=== PATIENT | female | born 1995 | race Caucasian/White ===

== ENCOUNTER 2016-10-31 11:57 | Outpatient (CLI) | payer BC ==
[~2016-10-31] VITALS: Ht 162.6 cm; Wt 68.1 kg
[2016-10-31] MEDS ORDERED: PRENAT PO (12:23)
[2016-10-31] MEDS ORDERED: CYAN100080 PO (12:23)
[2016-10-31 12:24] VITALS: BP 99/61; PULSE 90; RESP 18; Ht 162.6 cm; Wt 68.1 kg
--- NOTE | 2016-10-31 14:01 | RADRPT ---
PROCEDURE: OB ultrasound for biophysical profile with NARA. CLINICAL INDICATION: Vaginal bleeding. TECHNIQUE: Multiple sonographic images of the gravid uterus were obtained. The images were review ed on a PACS workstation. COMPARISON: None. FINDINGS: breathing movement = 2/2 tone = 2/2 motion = 2/2 NARA = 2/2 There is a single viable intrauterine gestation with cardiac and a heart rate of 132 bpm. Ther e is a cephalic presentation and an anterior, grade 1 placenta. There is no evidence of abruption o r placenta previa. NARA = 12.6 cm IMPRESSION: 1. Single viable intrauterine gestation. 2. Biophysical profile = 8/8. 3. NARA = 12.6 cm. RPTAT: HLBP .Neil Pereira MD, MD Date Time Electronically viewed and signed by .Neil Pereira MD, MD on 10/31/2016 14:01 .P/
--- NOTE | 2016-10-31 14:21 | TRIAGE ---
OB Triage Datetime Report Generated by CPN: 10/31/2016 14:21 Datetime: 10/31/2016 14:16 Vaginal Exam Dilatation (cms): 0.0 Exam By: [email or web address] Datetime: 10/31/2016 13:12 Labor Evaluation Frequency: 0 Monitor Mode: External Duration (sec)2399: 0 Resting Tone [place]: Relaxed Heart Rate FHR Baseline Rate: 125 Monitor Mode: External US FHR Baseline Changes: No Baseline Change Variability: Moderate 6-25 bpm Accelerations: 15X15 Decelerations: None Category: Category I Datetime: 10/31/2016 13:00 Stage of : OB Triage Maternal Assessment Level of Consciousness: Fully Conscious Labor Evaluation Frequency: NONE Monitor Mode: External Resting Tone [place]: Relaxed Heart Rate FHR Baseline Rate: 135 Monitor Mode: External US Variability: Moderate 6-25 bpm Accelerations: 15X15 Decelerations: None Pain Assessment Pain Scale: 0 Pain Presence: None/Denies Pain Goal: 3 Membrane Status: Intact Vaginal Bleeding: None Datetime: 10/31/2016 12:28 EGA: 30.4 Datetime: 10/31/2016 12:21 Assessment Type: Triage Maternal Assessment Level of Consciousness: Fully Conscious DTR's/Clonus: DTRs 2+; No Clonus Headache: Denies Blurred Vision: No Respiratory Effort: Unlabored; Regular Rhythm; Equal Expansion Breath Sounds, Left: Clear and Equal Breath Sounds, Right: Clear and Equal Nausea/Vomiting: Denies RUQ Epigastric Pain: Denies Lower Extremities Edema: None Degree: None Upper Extremities Edema: None Degree: None Facial Edema: None Fall Risk Assessment History of Falling: (0) No Secondary Diagnosis: (0) No Ambulatory Aid: (0) Bedrest/Nurse Assist IV Therapy: (0) No Gait: (0) Normal/Bedrest/Immobile Mental Status: (0) Oriented to Own Ability Fall Score: 0 Fall Risk Score Definition: No Risk: No action required Datetime: 10/31/2016 12:20 Time of Arrival: 10/31/2016 11:54 Arrived By: Ambulatory Arrived From: Home Chief Complaint: C/O SPOTTING Movement: Decreased Contractions: Denies/Absent Rupture of Membranes: Denies Vaginal Bleeding: None Vaginal Discharge: Denies Recent Sexual Intercouse: Denies Abdominal Trauma: Not Applicable Patient Complaints: None Provider Notified: LUZ MARINA Initial Plan: US BPP, EFM
--- NOTE | 2016-10-31 15:40 | HP ---
Date/Time of Note Date/Time of Note DATE: 10/31/16 TIME: 15:32 OB - History Hx of Present Free Text/Dictation 21 y.0 A1 EDC 01/05/17 at 30w4d with c/o vaginal spotting'. denies any uterine contractions at triage no evidence of vaginal spotting EFM no uterine activities u/s for placental location and any abrutio neg BPP 05/28 NARA 12.6 VE CX long closed no blood on exam glove Past Family/Social History * Past Medical, Surgical, Family and Obstetric Histories reviewed from chart. OB Admission Exam Vital Signs Vital Signs Vital Signs Date Time Temp Pulse Resp B/P Pulse Ox O2 Delivery O2 Flow Rate FiO2 10/31/16 12:24 98.8 90 18 99/61 99 Room Air OB Assessment/Plan Other Assessment: IUP 30W4D with vaginal spotting Other plan: d/s home with routine labor instructions advise to rth if any other episodes immediatly f/u at office for care KAYLAH RAZA MD Oct 31, 2016 15:40
== END 2016-10-31 14:30 | disposition home or self-care (01) ==
LOC: OBT 11:57 → L-D 11:58 → OBT 14:10 → L-D 14:10 → OBT 14:30
PROVIDERS: ATTEND Obstetrics & Gynecology
DX: O26.853 Spotting complicating pregnancy, third trimester (principal); Z3A.30 30 weeks gestation of pregnancy
CPT/HCPCS: 76818; Z7500; G0463

== ENCOUNTER 2017-01-08 08:00 | Inpatient (IN) | payer BC ==
[~2017-01-08] VITALS: Ht 162.6 cm; Wt 78.5 kg
[~2017-01-08 08:00] MED LIST: CYAN100080 PO; PRENAT PO
[2017-01-08 09:51] VITALS: Ht 162.6 cm; Wt 78.5 kg
[2017-01-08 09:52] VITALS: BP 122/70; PULSE 92; RESP 18
[2017-01-08] MEDS ORDERED: METHYLERGONOVINE 0.2 MG INJ IM PRN (10:00)
[2017-01-08] MEDS ORDERED: CARBOPROST 250 MCG INJ IM PRN (10:00)
[2017-01-08] MEDS ORDERED: OXYTOCIN 30 UNITS/LR 500 ML IV PRN (10:00)
[2017-01-08] MEDS ORDERED: MISOPROSTOL 200 MCG TAB PR PRN (10:00)
[2017-01-08] MEDS ORDERED: OXYTOCIN 30 UNITS/LR 500 ML IV SCH ×2 (10:00)
[2017-01-08] MEDS ORDERED: IBUPROFEN 600 MG TAB PO PRN (10:00)
[2017-01-08] MEDS ORDERED: LIDOCAINE 1% (MPF) 30 ML INJ INJ PRN (10:00)
[2017-01-08 10:04] LABS: ADD SCAN DIFF NO
[2017-01-08 10:06] LABS: BASOPHILS % 0.2 % (0.0-2.0); EOSINOPHILS # 0.1 10^3/ul (0.0-0.5); EOSINOPHILS % 0.7 % (0.0-7.0); HEMATOCRIT 34.4 % (37.0-47.0); HEMOGLOBIN 11.7 g/dl (12.0-16.0); LYMPHOCYTES # 2.1 10^3/ul (0.8-2.9); LYMPHOCYTES % 19.1 % (15.0-51.0); MEAN CORPUSCULAR VOLUME 96.9 fl (82.0-101.0); MEAN PLATELET VOLUME 11.4 fl (7.4-10.4); MONOCYTE # 0.8 10^3/ul (0.3-0.9); MONOCYTES % 7.2 % (0.0-11.0); NEUTROPHIL # 7.8 10^3/ul (1.6-7.5); NEUTROPHILS % 72.4 % (39.0-77.0); PLATELET COUNT 231 10^3/UL (140-415); RED BLOOD COUNT 3.55 10^6/ul (4.20-5.40); RED CELL DISTRIBUTION WIDTH 13.2 % (11.5-14.5); WHITE BLOOD COUNT 10.8 10^3/ul (4.8-10.8)
[2017-01-08 10:10] LABS: INR 0.92; PARTIAL THROMBOPLASTIN TIME 24.1 Sec (25.0-35.0); PROTIME 12.4 Sec (12.2-14.2)
[2017-01-08] MEDS: LACTATED RINGER'S 1,000 ML IV SCH ×2 (10:20→16:25)
[2017-01-08] MEDS ORDERED: DINOPROSTONE 10 MG VAG SUPP VAG ONE (11:00)
[2017-01-08 11:22] LABS: BARBITURATES NEGATIVE (NEGATIVE); BENZODIAZEPINES NEGATIVE (NEGATIVE); CANNABINOIDS NEGATIVE (NEGATIVE); COCAINE NEGATIVE (NEGATIVE); OPIATES NEGATIVE (NEGATIVE)
[2017-01-08] MEDS ORDERED: LACTATED RINGER'S 1,000 ML IV PRN (16:00)
[2017-01-09] MEDS ORDERED: DINOPROSTONE 10 MG VAG SUPP VAG ONE (01:10)
[2017-01-09] MEDS: BUTORPHANOL 2 MG INJ IV PRN ×2 (03:52→06:26)
[2017-01-09] MEDS: LACTATED RINGER'S 1,000 ML IV SCH ×2 (06:26→23:14)
[2017-01-09] MEDS ORDERED: FENTAnyl 2MCG/ML-ROPIV 0.2% 100 ML ONE (06:44)
[2017-01-09] MEDS ORDERED: DEXTROSE 5%-LR 1,000 ML IV SCH (10:30)
[2017-01-09] MEDS ORDERED: NALOXONE (0.4 MG/ML) INJ IV PRN (16:00)
[2017-01-09] MEDS ORDERED: KETOROLAC 30 MG INJ IV PRN (16:00)
[2017-01-09] MEDS ORDERED: PROCHLORPERAZINE 10 MG INJ IV PRN (16:00)
[2017-01-09] MEDS ORDERED: DIPHENHYDRAMINE 50 MG INJ IV PRN (16:00)
[2017-01-09] MEDS ORDERED: ONDANSETRON 4 MG INJ IV PRN (16:00)
[2017-01-09] MEDS ORDERED: FENTAnyl 2MCG/ML-ROPIV 0.2% 100 ML BAG EPI SCH (16:00)
[2017-01-09] MEDS ORDERED: morphine 2 MG INJ IV PRN ×2 (16:00)
--- NOTE | 2017-01-09 19:28 | HP ---
Date/Time of Note Date/Time of Note DATE: 01/09/17 TIME: 19:23 OB - History Hx of Present Free Text/Dictation 21 y.o A1(ia)at 39w5d for induction of labor electively VE closed long -2 had une venful course Estimated Due Date: Jan 09, 2017 : 2 Para: 0 Spontaneous : 0 Therapeutic : 1 Care: Good Care Ultrasounds: Normal mid trimester US Obstetrical Complications: None Medical Complications: None Past Family/Social History * Past Medical, Surgical, Family and Obstetric Histories reviewed from chart. Blood Type: A+ Rubella: immune RPR/VDRL: Negative GBS Status: Negative HBsAG: Negative OB Admission Exam Vital Signs Vital Signs Vital Signs Date Time Temp Pulse Resp B/P Pulse Ox O2 Delivery O2 Flow Rate FiO2 01/08/17 09:52 97.5 92 18 122/70 Room Air Physical Exam HEENT: WNL Heart: Rhythm Normal Lungs: Clear, Equal Abdomen: WNL Extremities: Normal Reflexes: Normal Cervical Dilatation: None Effacement: 0% Station: -2 Membranes: Intact Amniotic Fluid: Unevaluable Heart Rate: 140's Accelerations: Accelerations Present Decelerations: No Decelerations Varibility: Minimum Contractions on Admission: None Last 72 hours Lab Results CBC & BMP 01/08/17 09:35 OB Assessment/Plan Reason for admission: induction of labor Other Assessment: IUP 39W6D Plan: Induction Induction Method: per Misoprostol Protocol KAYLAH RAZA MD Jan 09, 2017 19:27
--- NOTE | 2017-01-09 19:30 | LDN ---
Date/Time of Note Date/Time of Note DATE: 01/09/17 TIME: 19:28 Delivery Summary NORMAL VAGINAL DELIVERY Placenta Delivered: Spontaneously Meconium: none Episiotomy: No Perineal laceration: 1 Laceration repair: VAGINAL LACERATION Anesthesia type: Epidural Estimated blood loss: 100 Sponge & Needle done & correct: Yes All needle counts correct: Yes Any foreign bodies felt in the: No Problems: Infant Delivery Information Sex Infant Sex: male Apgars 1 Minute: 9 5 Minute: 9 Suctioning Nose & mouth suctioned at rajni: Yes Delee suction performed: No Umbilical Cord Umbilical cord with: 3 Vessels Cord Blood was obtained: Yes Mother & Baby Disposition Disposition Mom & Baby to Maternity; Good: Yes Mom transferred to: Other () Baby to NICU: No KAYLAH RAZA MD Jan 09, 2017 19:30
[2017-01-09 21:20] VITALS: BP 108/63; PULSE 84; RESP 18
[2017-01-09 22:00] VITALS: BP 100/59; PULSE 82; RESP 18
[2017-01-09] MEDS ORDERED: OXYTOCIN 30 UNITS/LR 500 ML IV PRN (22:00)
[2017-01-09] MEDS ORDERED: ZOLPIDEM 5 MG TAB PO PRN (22:00)
[2017-01-09] MEDS ORDERED: METHYLERGONOVINE 0.2 MG INJ IM PRN (22:00)
[2017-01-09] MEDS ORDERED: CARBOPROST 250 MCG INJ IM PRN (22:00)
[2017-01-09] MEDS ORDERED: LANOLIN 7 GM TUBE TOP PRN (22:00)
[2017-01-09] MEDS ORDERED: MISOPROSTOL 200 MCG TAB PR PRN (22:00)
[2017-01-09] MEDS ORDERED: BENZOCAINE 20% 56 ML SPRAY TOP PRN (22:00)
[2017-01-09] MEDS ORDERED: WITCH HAZEL/GLYCERIN PAD PR PRN (22:00)
[2017-01-09] MEDS ORDERED: OXYCODONE/ASPIRIN (4.88/325) TAB PO PRN ×2 (22:00)
[2017-01-09] MEDS: IBUPROFEN 600 MG TAB PO SCH (23:46)
[2017-01-10] VITALS: BP 102/55; PULSE 84; RESP 18
[2017-01-10 04:10] VITALS: BP 98/63; PULSE 66
[2017-01-10] MEDS: IBUPROFEN 600 MG TAB PO SCH ×3 (06:02→17:13)
[2017-01-10] MEDS: LACTATED RINGER'S 1,000 ML IV SCH (07:30)
[2017-01-10 08:11] LABS: ADD SCAN DIFF NO
[2017-01-10 08:15] VITALS: BP 98/59; PULSE 78; RESP 18
[2017-01-10 08:18] LABS: BASOPHILS % 0.1 % (0.0-2.0); EOSINOPHILS # 0.2 10^3/ul (0.0-0.5); EOSINOPHILS % 1.3 % (0.0-7.0); HEMATOCRIT 30.3 % (37.0-47.0); HEMOGLOBIN 10.1 g/dl (12.0-16.0); LYMPHOCYTES # 1.7 10^3/ul (0.8-2.9); LYMPHOCYTES % 13.6 % (15.0-51.0); MEAN CORPUSCULAR HEMOGLOBIN 32.1 pg (29.0-33.0); MEAN CORPUSCULAR HGB CONC 33.3 g/dl (32.0-37.0); MEAN CORPUSCULAR VOLUME 96.2 fl (82.0-101.0); MEAN PLATELET VOLUME 11.6 fl (7.4-10.4); MONOCYTE # 0.8 10^3/ul (0.3-0.9); MONOCYTES % 6.3 % (0.0-11.0); NEUTROPHILS % 78.2 % (39.0-77.0); PLATELET COUNT 178 10^3/UL (140-415); RED BLOOD COUNT 3.15 10^6/ul (4.20-5.40); RED CELL DISTRIBUTION WIDTH 13.2 % (11.5-14.5); WHITE BLOOD COUNT 12.7 10^3/ul (4.8-10.8)
[2017-01-10] MEDS ORDERED: INFLUENZA VIRUS VACCINE 0.5 ML SYG IM* ONE (15:00)
[2017-01-10 16:30] VITALS: BP 99/58; PULSE 138
--- NOTE | 2017-01-10 17:39 | PN ---
Date/Time of Note Date/Time of Note DATE: 01/10/17 TIME: 17:37 OB Subjective Subjective Subjective c/o after pain OB Objective Objective Objective vss afebrile fundus ffirm lochia min ext neg for tenderness OB Assessment/Plan Other Assessment: stable Other plan: u/a urine culture KAYLAH RAZA MD Jan 10, 2017 17:39
[2017-01-10 20:05] VITALS: BP 107/66; PULSE 75; RESP 19
[2017-01-10] MEDS: SENNA/DOCUSATE NA (8.6MG/50MG) TAB PO SCH (21:47)
[2017-01-11] MEDS: IBUPROFEN 600 MG TAB PO SCH ×4 (00:25→17:42)
[2017-01-11 04:10] VITALS: BP 102/58; PULSE 79; RESP 18
[2017-01-11 08:00] VITALS: BP 89/59; PULSE 85; RESP 17
[2017-01-11] MEDS ORDERED: DIPHTH/TET/ACEL PERTUSS (ADULT) 0.5 ML VIAL IM* ONE (09:00)
[2017-01-11] MEDS: SENNA/DOCUSATE NA (8.6MG/50MG) TAB PO SCH (09:37)
--- NOTE | 2017-01-11 10:05 | PD.PPDC ---
[employer] Discharge Instruction Diagnosis Final Diagnosis: s/p normal vaginal delivery Condition Patient Condition: Stable Diet Diet: Resume Regular Diet Activity/Restrictions Activity: May Shower Restrictions: No Lifting No Sexual Activity Nothing in the Vagina No [place] No Tampons, douche Follow-up Follow-up with Physician: 6, Week/Weeks Return to clinic for [facility] SPECIALIST Instructions: Fever greater than 101 Chills Worsening abdominal pain Excessive Vaginal Bleeding More than 2 pads per hour Unable to tolerate diet OB Instructions: Breast Tenderness Depression Blurried Vision Headache Surgical Instructions: Incisional Drainage Incisional Redness KAYLAH RAZA MD Jan 11, 2017 10:05
--- NOTE | 2017-01-11 10:07 | DS ---
Date/Time of Note Date/Time of Note DATE: 01/11/17 TIME: 10:06 Obstetrical Discharge Record Final Diagnosis Final Diagnosis: Term delivered Vaginal Delivery Obstetrical Delivery: Spontaneous, Laceration, Repaired Complications Induction: Yes Condition on Discharge Physical Assessment Last Vitals: vss afebrile Voiding: Yes Bowel Movement: Yes Breast: Soft, non-tender Fundus: Firm Calf Tenderness: No Patient Condition: Stable KAYLAH RAZA MD Jan 11, 2017 10:07
[2017-01-11 16:00] VITALS: BP 100/65; PULSE 89; RESP 18
== END 2017-01-11 18:25 | disposition home or self-care (01) | DRG 775 ==
LOC: L-D 09:15 → PP1 01-09 21:15
PROVIDERS: ADMIT Obstetrics & Gynecology; ATTEND Obstetrics & Gynecology
PROC: 10E0XZZ Delivery of Products of Conception, External Approach (ICD-10-PCS; principal; 2017-01-09)
PROC: 0HQ9XZZ Repair Perineum Skin, External Approach (ICD-10-PCS; 2017-01-09)
PROC: 3E00X4Z Introduction of Serum, Toxoid and Vaccine into Skin and Mucous Membranes, External Approach (ICD-10-PCS; 2017-01-11)
DX: O71.4 Obstetric high vaginal laceration alone (principal); Z23 Encounter for immunization; Z3A.39 39 weeks gestation of pregnancy; Z37.0 Single live birth
CPT/HCPCS: 62319; 80307; 85025; 85610; 85730; 86592; 86900; 86901; 87086; 90686; 90715; J2590; J3010; J7120; J7121